=== PATIENT | female | born 1990 | race Caucasian/White ===

== ENCOUNTER 2020-08-22 09:07 | Emergency (ER) | payer MEDICAID, SELFPAY ==
[2020-08-22 09:14] VITALS: BP 120/74; PULSE 85; RESP 16; TEMP 36.2; O2SAT 100; BMI 28.3
--- NOTE | 2020-08-22 10:12 | ED_ITS ---
HPI - General Adult General Chief complaint: General Medical Stated complaint: sore throat,abdominal pain Time Seen by Provider: 08/22/20 10:10 Source: patient Mode of arrival: ambulatory Limitations: no limitations History of Present Illness HPI narrative: 29-year-old female came in today for sore throat, body ache. To symptoms started since yesterday. Patient today feels sore throat, left lower abdominal pain, no nausea, no vomiting. Patient describes the pain as dull aching pain 5/10, pain is constant, localized to the left lower abdominal area, no radiation, no other associated symptoms no vomiting or diarrhea or fever. Pain is not related to food, nothing relieves the pain, patient also declined any urinary dysuria or frequency, no vaginal discharge or bleed. Related Data Allergies Allergy/AdvReac Type Severity Reaction Status Date / Time No Known Allergies Allergy Unverified 03/03/20 16:20 [No Known Allergies*] Review of Systems Review of Systems: All other systems are reviewed and are negative Constitutional: Reports as per HPI and Reports no additional constitutional complaints Eyes: Reports as per HPI and Reports no additional eye complaints Reports system reviewed and no additional complaints, except as documented Cardiovascular: Reports as per HPI and Reports no additional cardiovascular complaints Respiratory: Reports as per HPI and Reports no additional respiratory complaints Gastrointestinal: Reports as per HPI and Reports no additional gastrointestinal complaints Genitourinary: Reports no additional female genitourinary complaints Musculoskeletal: Reports no additional musculoskeletal complaints Skin/Breast: Reports system reviewed and no additional complaints, except as docu Psychiatric: Reports no additional psychiatric complaints Endocrine: Reports no additional endocrine complaints Hematologic/Lymphatic: Reports no additional hematologic/lymphatic complaints Allergic/Immunologic: Reports no additional allergic/immunologic complaints Reports system reviewed and no additional complaints, except as documented and Reports Abnormal speech present [facility] Past Medical History Medical History No known health problems Social History Social History Advance Directives: No Advance Directives Information Provided: No Physical Exam Vital Signs: Vital Signs: Last Vital Signs Temp 97.2 F 08/22/20 09:14 Pulse 85 08/22/20 09:14 Resp 16 08/22/20 09:14 BP 120/74 08/22/20 09:14 Pulse Ox 100 08/22/20 09:14 Body Mass Index 28.3 Vital signs have been reviewed as appeared to be correct. Blood pressure normal. Heart rate normal. Respiration rate normal. Temperature normal. Oxygen saturation normal. Appearance: Alert. Oriented X3. No acute distress. Head: Normal external exam. Normocephalic. Atraumatic. No Morales signs noted. No raccoon eyes noted Eyes: PERRLA. EOMI. Conjunctiva and sclera normal. Eyelids normal. ENT: TM's Normal. Pharynx normal. Uvula midline. Moist mucous membranes. No trismus noted. No drooling noted. No muffled voice noted. Neck: Normal inspection. Neck supple. FROM. No adenopathy. Thyroid Normal. No meningeal signs. No neck mass noted. CVS: Normal heart rate and rhythm. Heart sound normal. No murmurs noted. Pulses normal throughout. Respiratory: No respiratory distress. Painless inspiration. Breath sounds normal. No wheezes/rales/rhonchi noted. Chest nontender. No accessory muscle usage noted or decreased air movement noted. Abdomen: Soft, mild left lower quadrant tenderness, no rebound tenderness, no guarding. Bowel sounds normal in all 4 quadrants. No distention noted. No organomegaly noted. No visible injury noted. Back: No CVA tenderness. Full range of motion noted. Skin: Skin warm and dry. Normal skin color. Normal skin turgor. No rashes/lesions/lacerations noted. Extremities: No lower extremity edema. Extremities exhibit normal range of motion. Extremities nontender. Neuro: Oriented X 3. No motor deficit. No sensory deficit. Reflexes normal. Course Course Course Narrative: [age] year female came in with generalized body ache and left lower abdominal pain. Patient has unremarkable labs, patient still have very mild left lower abdominal pain. No leukocytosis. Patient was reassured, start with clear diet advanced slowly as tolerated, patient was instructed to return to the emergency department if symptoms are worsening. Medical Decision Making Lab Data Lab results reviewed: Yes I reviewed the patient's lab results. Result diagrams: 08/22/20 12:11 08/22/20 12:11 Labs: Lab Results 08/22/20 08/22/20 08/22/20 Range/Units 10:01 12:02 12:02 WBC (4.8-10.8) X10*3/uL RBC (4.20-5.50) X10*6/uL Hgb (12.0-16.0) g/dl Hct (37-47) % MCV (80-98) fL MCH (27.0-33.0) pg MCHC (31.0-35.0) g/dl RDW (11.0-16.0) % Plt Count (160-400) X10*3/uL MPV (9.4-12.3) fL Immature Gran % (Auto) (0.0-0.4) % Neut % (Auto) (45-73) % Lymph % (Auto) (20-40) % [place] % (Auto) (2-11) % Eos % (Auto) (0-4) % Baso % (Auto) (0-2) % Lymph # (Auto) (1.2-4.9) X10*3/uL [place] # (Auto) (0.1-1.2) X10*3/uL Eos # (Auto) (0.0-0.4) X10*3/uL Baso # (Auto) (0.0-0.2) X10*3/uL Abs Immat Gran (auto) (0.00-0.03) X10*3/uL Absolute Neuts (auto) (2.0-8.3) X10*3/uL Absolute Nucleated RBC (0.0-0.012) X10*3/uL Nucleated RBC % (auto) (0.0-0.2) /100WBC Sodium (135-145) mmol/L Potassium (3.3-5.1) mmol/L Chloride (96-108) mmol/L Carbon Dioxide (22-29) mmol/L Anion Gap (12-20) BUN (9-16) mg/dL Creatinine (0.5-1.4) mg/dL Estim Creat Clear Calc Estimated GFR Random Glucose (60-115) mg/dL Calcium (8.4-10.2) mg/dL Total Bilirubin (0.0-1.0) mg/dL Direct Bilirubin (0.0-0.5) mg/dL AST (5-31) U/L ALT (0-31) U/L Alkaline Phosphatase (39-117) U/L Total Protein (6.5-8.0) g/dL Albumin (3.5-5.0) g/dL Lipase (8-78) U/L Urine Color YELLOW Urine Appearance HAZY Urine pH 5.5 (5.0-8.0) Ur Specific [place] >= 1.030 H (1.005-1.025) Urine Protein NEG (NEG-TRACE) MG/DL Urine Glucose (UA) NEG (NEG) MG/DL Urine Ketones NEG (NEG) MG/DL Urine Blood 1+ H (NEG) Urine Nitrite NEG (NEG) Ur Leukocyte Esterase NEG (NEG) Urine RBC 1-4 (0) /HPF Urine WBC 0 (0-4) /HPF Ur Squamous Epith Cells 1+ /LPF Urine Bacteria NONE /LPF Urine Mucus 3+ /LPF Urine Test NEGATIVE (NEGATIVE) Coronavirus (PCR) NEGATIVE (Negative) Influenza Type A (PCR) NEGATIVE (Negative) Influenza Type B (PCR) NEGATIVE (Negative) RSV RNA Qual (PCR) NEGATIVE (Negative) 08/22/20 08/22/20 Range/Units 12:11 12:11 WBC 6.5 (4.8-10.8) X10*3/uL RBC 5.28 (4.20-5.50) X10*6/uL Hgb 13.2 (12.0-16.0) g/dl Hct 41.3 (37-47) % MCV 78.2 L (80-98) fL MCH 25.0 L (27.0-33.0) pg MCHC 32.0 (31.0-35.0) g/dl RDW 14.3 (11.0-16.0) % Plt Count 279 (160-400) X10*3/uL MPV 9.9 (9.4-12.3) fL Immature Gran % (Auto) 0.3 (0.0-0.4) % Neut % (Auto) 63.9 (45-73) % Lymph % (Auto) 29.1 (20-40) % [place] % (Auto) 5.9 (2-11) % Eos % (Auto) 0.6 (0-4) % Baso % (Auto) 0.2 (0-2) % Lymph # (Auto) 1.9 (1.2-4.9) X10*3/uL [place] # (Auto) 0.4 (0.1-1.2) X10*3/uL Eos # (Auto) 0.0 (0.0-0.4) X10*3/uL Baso # (Auto) 0.0 (0.0-0.2) X10*3/uL Abs Immat Gran (auto) 0.02 (0.00-0.03) X10*3/uL Absolute Neuts (auto) 4.1 (2.0-8.3) X10*3/uL Absolute Nucleated RBC 0.000 (0.0-0.012) X10*3/uL Nucleated RBC % (auto) 0.0 (0.0-0.2) /100WBC Sodium 140 (135-145) mmol/L Potassium 4.4 (3.3-5.1) mmol/L Chloride 108 (96-108) mmol/L Carbon Dioxide 23 (22-29) mmol/L Anion Gap 13 (12-20) BUN 10 (9-16) mg/dL Creatinine 0.63 (0.5-1.4) mg/dL Estim Creat Clear Calc 128.0 Estimated GFR > 60 Random Glucose 85 (60-115) mg/dL Calcium 9.4 (8.4-10.2) mg/dL Total Bilirubin 0.9 (0.0-1.0) mg/dL Direct Bilirubin 0.4 (0.0-0.5) mg/dL AST 14 (5-31) U/L ALT 12 (0-31) U/L Alkaline Phosphatase 54 (39-117) U/L Total Protein 7.8 (6.5-8.0) g/dL Albumin 4.3 (3.5-5.0) g/dL Lipase 30 (8-78) U/L Urine Color Urine Appearance Urine pH (5.0-8.0) Ur Specific [place] (1.005-1.025) Urine Protein (NEG-TRACE) MG/DL Urine Glucose (UA) (NEG) MG/DL Urine Ketones (NEG) MG/DL Urine Blood (NEG) Urine Nitrite (NEG) Ur Leukocyte Esterase (NEG) Urine RBC (0) /HPF Urine WBC (0-4) /HPF Ur Squamous Epith Cells /LPF Urine Bacteria /LPF Urine Mucus /LPF Urine Test (NEGATIVE) Coronavirus (PCR) (Negative) Influenza Type A (PCR) (Negative) Influenza Type B (PCR) (Negative) RSV RNA Qual (PCR) (Negative) Discharge Plan Discharge Clinical Impression: Abdominal pain Qualifiers: Abdominal location: left lower quadrant Qualified Code(s): R10.32 - Left lower quadrant pain Patient Disposition: Home, Self-Care Instructions: Abdominal Pain (ED) Referrals: Heraclio Rocha MD [Primary Care Provider] - 2 days
[2020-08-22 10:56] LABS: Influenza A PCR NEGATIVE (Negative); Influenza B PCR NEGATIVE (Negative); Resp Syncy Virus RNA Qual PCR NEGATIVE (Negative); SARS COV2 PCR INHOUSE NEGATIVE (Negative)
[2020-08-22 12:25] LABS: MANUAL DIFF FLAG NO
[2020-08-22 12:30] LABS: Glucose Urine UA NEG (NEG); Leukocyte Esterase Urine NEG (NEG); Nitrite Urine NEG (NEG); PH 5.5 (5.0-8.0); Specific Gravity - Urine >= 1.030 (1.005-1.025); Urine Blood 1+ (NEG); Urine Ketones NEG (NEG); Urine Protein NEG (NEG-TRACE)
[2020-08-22 12:34] LABS: UPreg QC Valid YES; Urine Pregnancy NEGATIVE (NEGATIVE)
[2020-08-22 12:34] LABS: Basophils Percent Auto 0.2 % (0-2); Eosinophils Percent Auto 0.6 % (0-4); Hematocrit 41.3 % (37-47); Hemoglobin 13.2 g/dl (12.0-16.0); Imm Gran Abs Auto 0.02 X10*3/uL (0.00-0.03); Imm Gran Pct Auto 0.3 % (0.0-0.4); Lymphocytes Absolute Auto 1.9 X10*3/uL (1.2-4.9); Lymphocytes Percent Auto 29.1 % (20-40); Mean Corpuscular Volume 78.2 fL (80-98); Mean Platelet Volume 9.9 fL (9.4-12.3); Monocytes Absolute Auto 0.4 X10*3/uL (0.1-1.2); Monocytes Percent Auto 5.9 % (2-11); Neutrophils Absolute Auto 4.1 X10*3/uL (2.0-8.3); Neutrophils Percent Auto 63.9 % (45-73); Platelet Count 279 X10*3/uL (160-400); Red Blood Count 5.28 X10*6/uL (4.20-5.50); Red Cell Distribution Width 14.3 % (11.0-16.0); White Blood Count 6.5 X10*3/uL (4.8-10.8)
[2020-08-22 12:35] LABS: Appearance Urine HAZY; Color Urine YELLOW
[2020-08-22 12:40] LABS: Mucus Urine 3+ /LPF; Squamous Epithelial Cell Urine 1+ /LPF; WBC Urine 0 /HPF (0-4)
[2020-08-22 13:00] LABS: Alanine Aminotransferase 12 U/L (0-31); Albumin Level 4.3 g/dL (3.5-5.0); Alkaline Phosphatase 54 U/L (39-117); Aspartate Amino Transferase 14 U/L (5-31); Bilirubin Direct 0.4 mg/dL (0.0-0.5); Bilirubin Total 0.9 mg/dL (0.0-1.0); Blood Urea Nitrogen 10 mg/dL (9-16); Calcium 9.4 mg/dL (8.4-10.2); Estimated Glomerular Filt Rate > 60; Glucose Random 85 mg/dL (60-115); Lipase 30 U/L (8-78); Total Protein 7.8 g/dL (6.5-8.0)
[2020-08-22 13:11] LABS: Anion Gap 13 (12-20); Carbon Dioxide 23 mmol/L (22-29); Chloride 108 mmol/L (96-108); Potassium 4.4 mmol/L (3.3-5.1); Sodium 140 mmol/L (135-145)
== END 2020-08-22 13:20 | disposition home or self-care (01) ==
PROVIDERS: Emergency Provider Emergency Medicine; PCP Internal Medicine
DX: J02.0 Streptococcal pharyngitis (principal); R10.32 Left lower quadrant pain; Z20.822 Contact with and (suspected) exposure to COVID-19
CPT/HCPCS: 0241U; 36415; 80048; 80076; 81001; 81025; 83690; 85025; 87071; 87147; 87880; 99283

== ENCOUNTER 2021-01-05 14:27 | Emergency (ER) | payer MEDICAID, SELFPAY ==
[2021-01-05 15:00] VITALS: BP 113/64; PULSE 93; RESP 18; TEMP 36.7; O2SAT 100; BMI 31.3
[2021-01-05 16:40] LABS: Glucose Urine UA NEG (NEG); Leukocyte Esterase Urine NEG (NEG); Nitrite Urine NEG (NEG); Specific Gravity - Urine >= 1.030 (1.005-1.025); Urine Blood NEG (NEG); Urine Ketones NEG (NEG); Urine Protein TRACE MG/DL (NEG-TRACE)
[2021-01-05 16:41] LABS: Appearance Urine CLEAR; Color Urine YELLOW
[2021-01-05 17:04] LABS: Anion Gap 11 (12-20); Blood Urea Nitrogen 6 mg/dL (9-16); Calcium 8.9 mg/dL (8.4-10.2); Carbon Dioxide 24 mmol/L (22-29); Chloride 105 mmol/L (96-108); Creatinine Clr Calc Pharmacy 149.9; Estimated Glomerular Filt Rate > 60; Glucose Random 69 mg/dL (60-115); Potassium 4.1 mmol/L (3.3-5.1); Sodium 136 mmol/L (135-145)
== END 2021-01-05 21:07 | disposition left against medical advice (07) ==
PROVIDERS: Emergency Provider Emergency Medicine; PCP Internal Medicine
DX: O26.892 Other specified pregnancy related conditions, second trimester (principal); R10.9 Unspecified abdominal pain; Z3A.19 19 weeks gestation of pregnancy
CPT/HCPCS: 36415; 80048; 81003; 99283

== ENCOUNTER 2021-02-01 13:38 | Outpatient (REF) | payer MEDICAID, SELFPAY | END 2021-02-01 13:39 | disposition home or self-care (01) | LOC: HO.LAB 13:38 | PROVIDERS: PCP Internal Medicine; Visit Provider Internal Medicine | DX: Z20.822 Contact with and (suspected) exposure to COVID-19 (principal) | CPT/HCPCS: C9803; U0003; U0005 ==

== ENCOUNTER 2021-03-18 14:09 | Emergency (ER) | payer MEDICAID, SELFPAY ==
[2021-03-18 14:30] VITALS: BP 127/68; PULSE 106; RESP 16; TEMP 37; O2SAT 97; BMI 32.8
[2021-03-18 14:52] LABS: COVID-19 Test Negative (Negative)
== END 2021-03-18 17:41 | disposition left against medical advice (07) ==
PROVIDERS: Emergency Provider Emergency Medicine; PCP Internal Medicine
DX: J02.9 Acute pharyngitis, unspecified (principal); R51.9 Headache, unspecified; R42 Dizziness and giddiness; M79.10 Myalgia, unspecified site; Z20.822 Contact with and (suspected) exposure to COVID-19
CPT/HCPCS: 36415; 87635; 99282; 99283

== ENCOUNTER 2021-03-20 13:58 | Outpatient (REF) | payer MEDICAID, SELFPAY | END 2021-03-20 13:59 | disposition home or self-care (01) | LOC: HO.LAB 13:58 | PROVIDERS: PCP Internal Medicine; Visit Provider Internal Medicine | DX: Z20.822 Contact with and (suspected) exposure to COVID-19 (principal) | CPT/HCPCS: U0003; U0005 ==

== ENCOUNTER 2021-06-10 05:22 | Emergency (ER) | payer MEDICAID, SELFPAY ==
[2021-06-10 06:03] VITALS: BP 136/85; PULSE 85; RESP 16; TEMP 37.2; O2SAT 97; BMI 29.2
--- NOTE | 2021-06-10 06:32 | ED.URI ---
HPI - URI/Sore Throat General Chief Complaint: Upper Respiratory Symptoms Stated Complaint: sore throat, headache, fever ; COVID+ ?? Time Seen by Provider: 06/10/21 06:17 Source: patient Mode of arrival: ambulatory Limitations: no limitations History of Present Illness HPI Narrative: 30-year-old female who presents emergency department for evaluation upper respiratory infection type symptoms. The patient states that she has been sick since (3 days). The patient states that she has had fever, chills, sore throat, headache and nonproductive cough. She denied chest pain, shortness of breath or dyspnea on exertion. She states she is feeling fatigued and is having body aches. The patient is not vaccinated for COVID-19. The patient is approximately 3 weeks . She states that she had no difficulties during her or during her delivery. She currently is living at home with her 3-week-old , a 6-year-old and her . The patient was not vaccinated for COVID-19. The patient used a home COVID-19 test when her initial symptoms started 3 days prior and it was negative. Her home COVID-19 test today was positive. Related Data Previous Rx's Medication Instructions Recorded penicillin V potassium 500 mg 500 mg PO Q12H 10 Days #20 tab 08/26/20 tablet Allergies Allergy/AdvReac Type Severity Reaction Status Date / Time No Known Allergies Allergy Verified 01/05/21 15:00 [No Known Allergies*] Review of Systems Review of Systems: Yes all other systems are reviewed and are negative Neurologic: Reports Abnormal speech present [facility] Past Medical History [facility] Narrative: Past medical history: None. Past surgical history: None. Social history: She denies tobacco use. She denies alcohol use. She denies drug use. Medical History No known health problems Social History Social History Advance Directives: No Advance Directives Information Provided: Yes Physical Exam Vital Signs: Vital Signs: Last Vital Signs Temp 98.9 F 06/10/21 06:03 Pulse 85 06/10/21 06:03 Resp 16 06/10/21 06:03 BP 136/85 06/10/21 06:03 Pulse Ox 97 06/10/21 06:03 BMI result Body Mass Index 29.2 Const: General: cooperative, no acute distress, well developed, alert and awake Orientation/consciousness: oriented to person HENMT: Head: Yes normal to inspection, Yes normocephalic and Yes atraumatic Ears: hearing grossly normal bilaterally General nose exam: Normal external nose present Face and sinus: Yes normal facial exam Mouth: Normal oral and palatal mucosa present, lip normal, tongue normal, oropharynx normal and moist mucous membranes Throat: Yes posterior oropharynx normal, Yes tonsils normal and Yes uvula midline Eyes: General: appearance normal, both eyes and all related structures Eyelids: Yes eyelids normal Conjunctivae: conjunctivae normal Sclerae: sclerae normal Corneas: corneas normal Pupils: Equal, round and reactive pupils present Neck: Neck: Yes normal visual inspection, Yes no lymphadenopathy, Yes trachea midline and Yes supple Thyroid: Thyroid normal Lymphatic: no lymphadenopathy noted Chest: Chest palpation & inspection: normal inspection of the chest and normal palpation of entire chest wall Resp: Effort & Inspection: normal respiratory effort and able to speak in complete sentences Auscultation: clear to auscultation bilaterally Cardio: Rate: regular rate Rhythm: regular rhythm Heart sounds: S1 normal heart sound present, S2 normal heart sound present and no murmurs GI: Inspection: Yes normal to inspection Palpation (GI): Soft to palpation, nontender and No hepatosplenomegaly present Auscultation: normal bowel sounds : General: Yes no CVA tenderness Back/Spine/Pelvis: Back: no CVA tenderness Thoracic/Lumbar Spine: thoracic and lumbar spine normal to inspection Skin: General skin exam: no rashes or lesions noted, no erythema and no jaundice Lesions: no lesions Rashes: no rashes Trauma: no lacerations or abrasions Wounds: no wounds Neuro: General: oriented to person, moves all extremities and no focal motor deficits Cranial nerves: Yes Equal, round and reactive pupils present Cognition (Neuro): normal cognition Speech: Abnormal speech present Motor exam (neuro): Motor abnormalities not present Extrem: General: Yes normal to inspection, Yes no pedal edema and Yes no calf tenderness Right upper extremity: normal to inspection Left upper extremity: normal to inspection Right lower extremity: normal to inspection Left lower extremity: normal to inspection Psych: Appearance: grossly normal Mental Status: mental status grossly normal Speech and movement: Normal speech and movement present Affect: normal affect Attitude: cooperative Thought process: Normal thought process present Insight: Good insight present (Psych) Course Course Course Narrative: 30-year-old female who presents emergency department for evaluation URI like symptoms x3 days. The patient is x3 weeks. The symptoms include headache, sore throat, fever, cough, myalgias and fatigue. She had a positive home COVID-19 test today. She is complaining of a headache. She is not complaining of abdominal pain but given her other symptoms and her positive COVID-19 test at home, I believe that her symptoms are most likely due to a viral infection and not related to preeclampsia. Patient's blood pressure was normal at 136/85 . The rest of her vital signs were normal with an O2 saturation of 97% on room air. The patient was tested for COVID-19, influenza and RSV. The patient will be sent home and I will call her with this result. The patient was given printed and verbal instructions on COVID, isolation and quarantine instructions for her family as well. Discharge Plan Discharge Clinical Impression: Upper respiratory infection Patient Disposition: Home, Self-Care Instructions: COVID-19 (Coronavirus Disease 2019) (ED) Additional Instructions: Your symptoms are consistent with a viral upper respiratory infection, given your positive home COVID-19 test, you most likely have a COVID-19 infection. Your tested today for COVID-19, influenza and RSV virus. I will call you today with this result. Given your positive home COVID-19 test you need to isolate for 14 days. You, your and her 6-year-old child should wear masks at home to reduce the chance of your and 6-year-old child becoming positive for COVID-19. At this time your vital signs were normal and your O2 saturation (oxygen level was 97%). We usually do not hospitalized people with COVID-19 if you developed pneumonia and your oxygen level drops below 88%. Take ibuprofen 200 mg pills, 3 pills every 6 hours as needed for pain or fever Take Tylenol (acetaminophen) 500 mg pills, 2 pills every 4 to 6 hours as needed for pain or fever Please return to emergency department if you develops signs of pneumonia which would include shortness of breath with walking around, moderate to severe shortness of breath at rest, chest pain which is worse with breathing, or if you develops any new symptoms that are concerning to you. Your family needs to stay in isolation for 14 days as well. You can go to the CDC website for more information on isolation and quarantine and people that her COVID positive. If your 3-week-old baby gets sick then you should bring your baby to the Pediatric Emergency Department at [facility] where they have specialized care to take care of the baby this young. Prescriptions: No Action penicillin V potassium 500 mg tablet 500 mg PO Q12H 10 Days Qty: 20 RF: 0
[2021-06-10 06:47] LABS: Influenza A PCR NEGATIVE (Negative); Influenza B PCR NEGATIVE (Negative); Resp Syncy Virus RNA Qual PCR NEGATIVE (Negative)
[2021-06-10 06:50] LABS: SARS COV2 PCR INHOUSE POSITIVE (Negative)
== END 2021-06-10 07:05 | disposition home or self-care (01) ==
PROVIDERS: Emergency Provider Emergency Medicine Emergency Medical Services
DX: O99.53 Diseases of the respiratory system complicating the puerperium (principal); J06.9 Acute upper respiratory infection, unspecified; Z20.822 Contact with and (suspected) exposure to COVID-19
CPT/HCPCS: 0241U; 99283

== ENCOUNTER 2021-06-28 14:42 | Outpatient (REF) | payer MEDICAID, SELFPAY ==
[2021-06-28 15:52] LABS: COVID-19 Test Negative (Negative)
== END 2021-06-28 14:43 | disposition home or self-care (01) ==
LOC: HO.LAB 14:42
PROVIDERS: Visit Provider Internal Medicine
DX: Z20.822 Contact with and (suspected) exposure to COVID-19 (principal)
CPT/HCPCS: 87635; C9803

== ENCOUNTER 2021-11-30 08:41 | Emergency (ER) | payer OTHER, SELFPAY ==
[2021-11-30 08:43] VITALS: BP 128/85; PULSE 78; RESP 14; TEMP 36.5; O2SAT 99; BMI 29.2
--- NOTE | 2021-11-30 09:02 | ED_ITS ---
HPI - General Adult General Chief complaint: General Medical Stated complaint: r foot and r hand pain Time Seen by Provider: 11/30/21 09:02 Source: patient Mode of arrival: ambulatory Limitations: no limitations History of Present Illness HPI narrative: 31 y/o female presenting with right foot pain and right hand pain, acute on chronic after starting a new job this week. She is standing and using her hands for 8 hours a day. She has a bunion on her right foot that has bothered her for years but worse now that she is on her feet all the time. No trauma or injury. She does not wear bunion supports or wide shoes. Her right hand pain is also acute on chronic and flares up when she uses her hands a lot. She denies any weakness, numbness or tingling in the hand. She states the pain is worse when she puts pressure on it or pushes hard on the hand bones. No injury. complaint: right foot and right hand pain Onset (ago): month(s) Location: right, upper extremity and lower extremity Radiation: non-radiation Severity: moderate Severity scale (1-10): 5 Quality: aching Pain Consistency: intermittent Relieving factors: rest Exacerbating factors: movement Associated symptoms: denies other symptoms Treatments prior to arrival: none Related Data Previous Rx's Medication Instructions Recorded penicillin V potassium 500 mg 500 mg PO Q12H Pharyngitis 10 days 08/26/20 tablet #20 tabs ibuprofen 600 mg tablet 600 mg PO Q8H PRN pain #20 tabs 11/30/21 Allergies Allergy/AdvReac Type Severity Reaction Status Date / Time No Known Allergies Allergy Verified 01/05/21 15:00 [No Known Allergies*] Review of Systems Review of Systems: Constitutional: No Fever, No Chills ENT/Mouth: No sore throat, No Rhinorrhea Cardiovascular: No Chest Pain, No SOB Gastrointestinal: No Nausea, No Vomiting Musculoskeletal: + joint pain, No Myalgias Skin: No Skin Lesions, No rash Neuro: No Weakness, No Numbness Psych: No Anxiety/Panic, No Depression Heme/Lymph: No Bruising, No Lymphadenopathy PMFSH Past Medical History Medical History No known health problems Social History Social History Advance Directives: No Advance Directives Information Provided: No Physical Exam ED Vital Signs: Vital Signs - 24 hr 11/30/21 08:43 Temperature 97.7 F Pulse Rate 78 Respiratory Rate 14 Blood Pressure 128/85 Pulse Oximetry 99 Oxygen Delivery Method Room Air BMI result Body Mass Index 29.2 Appearance: Alert. Oriented X3. No acute distress. HEENT: normal inspection CVS: Normal heart rate and rhythm. Pulses normal. Respiratory: No respiratory distress. Skin: Skin warm and dry. Normal skin color. Normal skin turgor. No rashes. Extremities: right foot with a small bunion at the 1st MTP, mildly tender, not red or warm. no sensory deficit. right hand with normal inspection, mild tenderness of the metacarpals 3-5. 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 NV intact. normal adduction and abduction of all digits. no erythema or warmth. Neuro: Oriented X 3. No motor deficit. No sensory deficit. Course Course Course Narrative: 31 y/o female presenting with acute on chronic right foot and right hand pain. Exam is consistent with a small bunion on the right foot. Patient counseled on appropriate footwear and bunion corrector splint. Her hand pain is nontraumatic and due to overuse. Will place in velcro splint for support, prescribe NSAID and have her follow up with Podiatry and Hand. Stable for d/c home. Work note provided per request. Discharge Plan Discharge Clinical Impression: Bunion of right foot, Arthralgia of hand, right Patient Disposition: Home, Self-Care Instructions: Bunion (ED) Additional Instructions: Recommend getting a wide shoe for better fit, so your bunion is not compressed. Wear the provided velcro splint as needed for support of your hand. Take the prescribed anti-inflammatory pain medication as needed for pain. Recommend following up with your doctor, as well as a Farm Planner and our Hand Specialist for further evaluation. If you develop new or worsening symptoms call 911 or come back to the ER for further evaluation. Prescriptions: New ibuprofen 600 mg tablet 600 mg PO Q8H PRN (Reason: pain) Qty: 20 0RF No Action penicillin V potassium 500 mg tablet 500 mg PO Q12H 10 Days Qty: 20 0RF Referrals: Salomón Cummings MD [Primary Care Provider] - Shara Sherman MD [Physician] - (nontraumatic right metacarpal pain, overuse) Ezra Cabrera MD [Physician] - (painful bunion right foot) Stand Alone Forms: Work/School Release
--- NOTE | 2021-11-30 09:17 | PC.NURSE ---
steady gait, moving all extremities, no obvious deformity, nad.
== END 2021-11-30 09:23 | disposition home or self-care (01) ==
PROVIDERS: Emergency Provider Student in an Organized Health Care Education/Training Program; PCP Internal Medicine
DX: M21.611 Bunion of right foot (principal); M79.671 Pain in right foot; M25.541 Pain in joints of right hand
CPT/HCPCS: 99283

== ENCOUNTER 2022-01-17 07:48 | Outpatient (REF) | payer OTHER, SELFPAY | END 2022-01-17 07:49 | disposition home or self-care (01) | LOC: HO.HOSX 07:48 | PROVIDERS: Visit Provider Physician Assistant | DX: Z13.89 Encounter for screening for other disorder (principal) ==

== ENCOUNTER 2023-02-05 17:44 | Emergency (ER) | payer OTHER, SELFPAY ==
--- NOTE | ~2023-02-05 | XR_ITS ---
EXAMINATION: XR FOOT, LEFT CLINICAL INFORMATION: Pain. COMPARISON: None available. TECHNIQUE: AP, lateral, and oblique views of the left foot. FINDINGS: The bone mineralization is normal. No fracture. Alignment is anatomic. Joint spaces are maintained. There is focal soft tissue swelling along the dorsum of the midfoot. XR/XR foot LT min 3V IMPRESSION: No acute osseous abnormality. Soft tissue swelling along the dorsum of the midfoot.
[2023-02-05 18:30] VITALS: BP 128/80; PULSE 71; RESP 18; TEMP 36.6; O2SAT 100; BMI 28.7
--- NOTE | 2023-02-05 18:30 | ED.LOWEXIN ---
HPI - Extremity Injury (Lower) General Chief Complaint: Extremity Injury, Lower Stated Complaint: ? cyst on L foot Time Seen by Provider: 02/05/23 18:56 Source: patient Mode of arrival: ambulatory Limitations: no limitations History of Present Illness HPI Narrative: 32 old female presents to ED for swelling on top of left foot. Patient states lump on top of left foot that is for a week without any trauma. patient states at times can be painful. Patient denies any redness of area, open wounds, leg swelling, calf pain, red streaks, fever, chills, calf pain, chest pain, shortness of breath, bluish black discoloration, or numbness/ tingling. Related Data Previous Rx's Medication Instructions Recorded amitriptyline 10 mg tablet 10 mg PO BEDTIME 30 days #30 tabs 04/16/22 cephalexin 500 mg capsule 500 mg PO TID #30 caps 07/11/22 meloxicam 15 mg tablet 15 mg PO DAILY #14 tabs 07/11/22 Allergies Allergy/AdvReac Type Severity Reaction Status Date / Time No Known Allergies Allergy Verified 02/05/23 18:30 [No Known Allergies*] Review of Systems Review of Systems: foot lump Yes all other systems are reviewed and are negative PMFSH Past Medical History Medical History No known health problems Social History Social History Housing: Apartment Patient Tobacco Use Status: Never used Tobacco e-Cigarette/Vaping Use: Never Used Advance Directives: No Advance Directives Information Provided: No Current occupational status: employed Cognitive needs: No Hearing needs: No Vision needs: Yes Physical Exam Vital Signs: Vital Signs: Last Vital Signs Temp 99.2 F 02/05/23 20:07 Pulse 80 02/05/23 20:07 Resp 20 02/05/23 20:07 BP 120/82 02/05/23 20:07 Pulse Ox 100 02/05/23 20:07 O2 Del Method Room Air 02/05/23 20:07 BMI result Body Mass Index 28.7 Const: General: cooperative, healthy appearing, comfortable, no acute distress, well developed, alert, awake and Physically active Orientation/consciousness: oriented to person, oriented to place, oriented to time and patient oriented x3 HEENT: Head: Yes normal to inspection, Yes No palpable skull fracture present, Yes normocephalic, Yes atraumatic and No abrasion Eyes: General: appearance normal, both eyes and all related structures Neck: Neck: Yes normal visual inspection, Yes full ROM, Yes no lymphadenopathy, Yes no meningeal signs, Yes trachea midline, Yes supple, No anterior neck swelling and No tender Chest: Chest palpation & inspection: normal inspection of the chest and normal palpation of entire chest wall Resp: Effort & Inspection: normal respiratory effort and able to speak in complete sentences Auscultation: clear to auscultation bilaterally Cardio: Jugular venous distension: no JVD Heart sounds: S1 normal heart sound present and S2 normal heart sound present GI: Inspection: Yes normal to inspection Palpation (GI): Soft to palpation, not firm, nontender, no guarding and not rigid : General: No CVA tenderness and Yes no CVA tenderness Back/Spine/Pelvis: Back: no CVA tenderness, No CVA tenderness and No back tenderness Skin: General skin exam: no rashes or lesions noted and elasticity normal Neuro: General: oriented to person, oriented to place, oriented to time, patient oriented x3, gait normal, tone normal, moves all extremities, Normal light touch and pain sensation, no meningeal signs, no focal motor deficits, CN's II-XI intact bilaterally and normal sensation to monofilament Extrem: General: Yes normal to inspection and Yes full ROM Ankle/foot/toe images: 1. Positive for tender swollen area without any redness/fluctuance/pus discharge/foul odor. Rest of extremity normal. Motor/ neuro/vascular exam intact. Psych: Appearance: grossly normal, well kempt and not disheveled Course Course Course Narrative: RME: 32-year-old female with no significant past medical history presenting to the ED complaining of painful growing lump to top of left foot x months. Reports increasing pain over the past few days. Denies injury/trauma or fall + 2 x 2 cm hard cyst/lump to dorsal aspect of left foot. Mildly tender. Any intact. No erythema/warmth or fluctuance. No drainage X-rays ordered Full HPI, ROS and PE to be performed by primary ED provider. Medical Decision Making Medical Decision Making MDM Narrative: 32-year-old female with lump on dorsum of left foot that is painful without any redness, recent trauma, open wounds, pulse discharge, foul odor, fever, or chills. Patient states no trouble walking. Patient states no other masslike lesion on the bursal body. Patient denies any calf pain, fever, chills, chest pain or shortness. Differential Diagnosis Differential Diagnoses: The differential diagnosis associated with the presentation includes ( abscess, lipoma, cyst, cellulitis, DVT,) Independent Interpretation I performed an independent interpretation of an: Plain X-Ray Radiology Impression Discussion of test interpretation with radiology: I have reviewed the radiologist's reading. External Record Review External record reviewed: Other (Prior ED visit) Discharge Plan Discharge Clinical Impression: Ganglion cyst of left foot, Lipoma Patient Disposition: Home, Self-Care Instructions: Ganglion Cysts (ED), Lipoma (ED), Soft Tissue Mass (ED) Additional Instructions: irasema un seguimiento con martinez proveedor de atenci?n primaria para que lo remita a podolog?a u ortopedia para la evaluaci?n de un posible quiste versus lipoma en martinez pie. Regrese al servicio de urgencias de inmediato por cualquier aumento de la hinchaz?n de las extremidades, enrojecimiento, decoloraci?n ren, dolor en la pantorrilla, vetas castro, fiebre, escalofr?os o cualquier otro s?ntoma preocupante. Prescriptions: No Action amitriptyline 10 mg tablet 10 mg PO BEDTIME 30 Days Qty: 30 0RF cephalexin 500 mg capsule 500 mg PO TID Qty: 30 0RF meloxicam 15 mg tablet 15 mg PO DAILY Qty: 14 0RF Interventions: ED Discharge Assessment Last Done: 02/05/23 21:10 Discharge Date/Time: 02/05/23 21:10 Print Language: [place]
[2023-02-05 20:07] VITALS: BP 120/82; PULSE 80; RESP 20; TEMP 37.3; O2SAT 100
== END 2023-02-05 21:10 | disposition home or self-care (01) ==
PROVIDERS: Emergency Provider Emergency Medicine; PCP Internal Medicine
DX: M67.472 Ganglion, left ankle and foot (principal); D17.39 Benign lipomatous neoplasm of skin and subcutaneous tissue of other sites; Z79.899 Other long term (current) drug therapy
CPT/HCPCS: 73630; 99283

== ENCOUNTER 2023-04-27 11:15 | Emergency (ER) | payer OTHER, SELFPAY ==
--- NOTE | ~2023-04-27 | US_ITS ---
EXAMINATION: US OBSTETRICAL ULTRASOUND CLINICAL INFORMATION: Pain, brown discharge, positive COMPARISON: None available. Real-time imaging by the packaging inspector transabdominal transvaginal. Exam is demonstrating an intrauterine . [place]-rump length is 0.24 cm corresponding to 5 weeks 6 days. heart rate 103 bpm. There is a yolk sac. Adjacent to the sac is a fluid collection measuring 1.6 x 1 x 0.9 cm. Most consistent with a implantation bleed The right ovary is 2.2 x 1.3 x 1.8 cm. Normal-appearing. Left ovary is 2 x 1.6 x 1.8 cm. Cyst associated with the left ovary mildly thick-walled 1.1 cm May well represent corpus luteum. No free fluid. US/US OB pelvic and transvaginal IMPRESSION: Single live intrauterine . 5 weeks 6 days by ultrasound criteria. Implantation bleed is felt to be present 1.6 x 1 x 0.9 cm
[2023-04-27 11:31] VITALS: BP 130/73; PULSE 91; RESP 18; TEMP 36.6; O2SAT 100; BMI 28.7
--- NOTE | 2023-04-27 11:31 | ED.ABDPAIN ---
HPI - Abdominal Pain General Chief Complaint: Abdominal Pain Stated Complaint: stomach pain, pregant Time Seen by Provider: 04/27/23 14:59 Source: patient Mode of arrival: ambulatory Limitations: no limitations History of Present Illness HPI narrative: Patient is a 32 year old assigned female at with a history of migraines presenting to the emergency department today with epigastic pain and brown vaginal discharge. Patient states that she is 5 weeks and has been having some epigastric pain and a small amount of brown discharge since this morning. Patient denies any dizziness, lightheadedness, nausea, vomiting, fever, chills, blurry vision, double vision, loss of vision, chest pain, difficulty breathing, shortness of breath, back pain, night sweats, pain with urination, increased urinary frequency, increased urinary urgency, blood in her urine or stool, syncope or a near syncopal episode, recent trauma or falls, bowel incontinence, bladder incontinence, bowel retention, bladder retention, or any other complaints at this time. Associated symptoms: denies other symptoms Related Data Patient : Yes Previous Rx's Medication Instructions Recorded amitriptyline 10 mg tablet 10 mg PO BEDTIME 30 days #30 tabs 04/16/22 cephalexin 500 mg capsule 500 mg PO TID #30 caps 07/11/22 meloxicam 15 mg tablet 15 mg PO DAILY #14 tabs 07/11/22 Allergies Allergy/AdvReac Type Severity Reaction Status Date / Time No Known Allergies Allergy Verified 02/05/23 18:30 [No Known Allergies*] Review of Systems Constitutional: Reports no additional constitutional complaints, Denies chills, Denies fever(s) and Denies night sweats Eyes: Reports no additional eye complaints, Denies blurry vision, Denies change in vision, Denies diplopia, Denies eye discharge, Denies loss of vision and Denies eye pain Denies dizziness Cardiovascular: Reports no additional cardiovascular complaints, Denies chest pain, Denies lightheadedness, Denies Loss of Consciousness and Denies dyspnea Respiratory: Reports no additional respiratory complaints and Denies dyspnea Gastrointestinal: Reports no additional gastrointestinal complaints, Reports abdominal pain (epigastric pain), Denies melena, Denies hematochezia, Denies change in bowel habits and Denies change in stool character Genitourinary: Denies hematuria, Denies urinary frequency, Denies dysuria, Denies urinary incontinence, Denies urinary hesitancy and Denies urinary urgency Comments: brown vaginal discharge, scant Musculoskeletal: Reports no additional musculoskeletal complaints, Denies numbness and Denies tingling Denies dizziness, Denies loss of vision, Denies numbness and Denies tingling Psychiatric: Reports no additional psychiatric complaints Endocrine: Reports no additional endocrine complaints Hematologic/Lymphatic: Reports no additional hematologic/lymphatic complaints Allergic/Immunologic: Reports no additional allergic/immunologic complaints [facility] Past Medical History Attestation statement: The following information was validated with the patient. Source: old records reviewed and nursing notes reviewed Medical History Knee pain, right Overweight (BMI 25.0-29.9) Encounter for general adult medical examination with abnormal findings Encounter for routine gynecological examination No known health problems Social History Social History Housing: Apartment Patient Tobacco Use Status: Never used Tobacco Smoked in Last 30 Days: No e-Cigarette/Vaping Use: Never Used Use of substances other than those prescribed or required for medical reasons: No Advance Directives: No Advance Directives Information Provided: No Patient : Yes Current occupational status: employed Cognitive needs: No Hearing needs: No Vision needs: Yes Physical Exam ED Vital Signs: Vital Signs - 24 hr 04/27/23 13:56 Pulse Rate 76 Respiratory Rate 16 Blood Pressure 120/73 Pulse Oximetry 100 Oxygen Delivery Method Room Air BMI result Body Mass Index 28.7 Const General: cooperative, no acute distress, alert and awake Nutritional Appearance: well nourished Orientation/consciousness: patient oriented x3 Limitations: no limitations [facility] Head: Yes normal to inspection and Yes atraumatic Ears: hearing grossly normal bilaterally and external ears normal General nose exam: Normal external nose present, no nasal discharge noted and no epistaxis Face and sinus: Yes normal facial exam, No abrasion and No laceration Mouth: Normal oral and palatal mucosa present, no drooling and no muffled voice Eyes General: appearance normal, both eyes and all related structures Periorbital: periorbital findings normal Eyelids: Yes eyelids normal Conjunctivae: conjunctivae normal Pupils: Equal, round and reactive pupils present EOM: EOMs intact bilaterally Neck Neck: Yes normal visual inspection, Yes full ROM and Yes no lymphadenopathy Chest Chest palpation & inspection: normal inspection of the chest Resp Effort & Inspection: normal respiratory effort and able to speak in complete sentences GI Inspection: Yes normal to inspection Palpation (GI): Soft to palpation, not firm, nontender and no guarding Neuro General: patient oriented x3 and moves all extremities Cranial nerves: Yes Equal, round and reactive pupils present Cognition (Neuro): normal cognition Motor exam (neuro): 5/5 motor strength present throughout Sensory Exam: Normal double simultaneous stimulation for sensation Coordination: [id number] test normal Extrem General: Yes normal to inspection, Yes full ROM and Yes capillary refill normal Psych Appearance: grossly normal Mental Status: mental status grossly normal Affect: normal affect Attitude: cooperative Thought process: Normal thought process present Thought content: Normal thought content present Insight: Good insight present (Psych) Course Course Course Narrative: This is a rapid medical exam. Deferred additional HPI, ROS, PE to primary provider. 32 yo female with no known medical history, currently 5 weeks here with 4 days of epigastric pain. No nausea/vomiting/diarrhea/vaginal bleeding. Has not seen OB yet. [place] [facility] [place]. [place] 1 Will obtain labs, UA VSS Medical Decision Making Medical Decision Making MDM Narrative: Patient is a 32 year old assigned female at with a history of migraines presenting to the emergency department today with epigastric pain and scant brown vaginal discharge. Patient's physical exam was unremarkable. Patient's blood work was unremarkable. Patient's urine showed no acute process. Patient's OB transvaginal US showed a single live intrauterine and implantation bleed. I explained my physical exam findings as well as all test results to the patient. I answered all questions asked by the patient. I stressed the importance of the patient taking her medication as prescribed. I stressed the importance of the patient following up with her primary care provider and her OBGYN. Patient states that she has an appointment with her OBGYN on 05/01/2023. I stressed the importance of the patient returning to the emergency department immediately if her symptoms were to worsen or if she were to develop any dizziness, shortness of breath, difficulty breathing, chest pain, blurry vision, loss of vision, nausea, vomiting, abdominal pain, fever, chills, back pain, or any other complaints. Patient verbalized agreement and understanding with this treatment plan and discharge. Differential Diagnosis Differential Diagnoses: The differential diagnosis associated with the presentation includes Subchorionic hemorrhage Vaginal discharge Epigastric pain Admission/Observation Consideration of admission/observation: Escalation of care including admission/observation considered Patient would have been admitted to the hospital had her work up had any findings where hospital admission was appropriate and her clinical presentation warranted hospital admission. Lab Data MDM Lab Attestation statement: I reviewed the patient's lab results. My interpretation of these studies and their corresponding values is that they are grossly normal. 04/27/23 11:51 04/27/23 11:51 Labs: Lab Results 04/27/23 Range/Units 11:51 WBC 7.1 (4.8-10.8) X10*3/uL RBC 5.05 (4.20-5.50) X10*6/uL Hgb 12.4 (12.0-16.0) g/dl Hct 38.5 (37.0-47.0) % MCV 76.2 L (80.0-98.0) fL MCH 24.6 L (27.0-33.0) pg MCHC 32.2 (31.0-35.0) g/dl RDW 15.1 (11.0-16.0) % Plt Count 337 (160-400) X10*3/uL MPV 9.0 L (9.4-12.3) fL Immature Gran % (Auto) 0.3 (0.0-0.4) % Neut % (Auto) 63.8 (45-73) % Lymph % (Auto) 27.7 (20-40) % [place] % (Auto) 6.4 (2-11) % Eos % (Auto) 1.7 (0-4) % Baso % (Auto) 0.1 (0-2) % Lymph # (Auto) 2.0 (1.2-4.9) X10*3/uL [place] # (Auto) 0.5 (0.1-1.2) X10*3/uL Eos # (Auto) 0.1 (0.0-0.4) X10*3/uL Baso # (Auto) 0.0 (0.0-0.2) X10*3/uL Abs Immat Gran (auto) 0.02 (0.00-0.03) X10*3/uL Absolute Neuts (auto) 4.5 (2.0-8.3) x10*3/uL Absolute Nucleated RBC 0.000 (0.0-0.012) X10*3/uL Nucleated RBC % (auto) 0.0 (0.0-0.2) /100WBC Sodium 139 (135-145) mmol/L Potassium 4.1 (3.3-5.1) mmol/L Chloride 105 (96-108) mmol/L Carbon Dioxide 27 (22-29) mmol/L Anion Gap 11 L (12-20) BUN 10 (9-16) mg/dL Creatinine 0.62 (0.5-1.4) mg/dL Estim Creat Clear Calc 127.3 Estimated GFR > 60 Random Glucose 88 (60-115) mg/dL Calcium 9.5 D (8.4-10.2) mg/dL Total Bilirubin 1.0 (0.0-1.0) mg/dL Direct Bilirubin 0.3 (0.0-0.5) mg/dL AST 12 (5-31) U/L ALT 8 (0-31) U/L Alkaline Phosphatase 53 (39-117) U/L Total Protein 7.8 (6.5-8.0) g/dL Albumin 4.1 (3.5-5.0) g/dL Lipase 31 (8-78) U/L Beta HCG, Quant 9551 mIU/mL Urine Color Yellow Urine Appearance Clear Urine pH 8.0 (5.0-9.0) Ur Specific [place] >= 1.030 H (1.005-1.025) Urine Protein Negative (Neg-Trace) mg/dL Urine Glucose (UA) Negative (Negative) mg/dL Urine Ketones Negative (Negative) mg/dL Urine Blood Negative (Negative) Urine Nitrite Negative (Negative) Ur Leukocyte Esterase Trace H (Negative) Urine RBC 3-5 H (0-2) /HPF Urine WBC 0-5 (0-5) /HPF Ur Squamous Epith Cells 6-10 (0-2) /HPF Urine Bacteria None Seen (None Seen) Hyaline Casts 0-2 (0-2) /LPF Urine Test POSITIVE H (NEGATIVE) Independent Interpretation I performed an independent interpretation of an: Ultrasound Interpretation: My interpretation is in agreement with the radiologist's impression of this imaging study. EXAMINATION: US OBSTETRICAL ULTRASOUND CLINICAL INFORMATION: Pain, brown discharge, positive COMPARISON: None available. Real-time imaging by the emergency department manager transabdominal transvaginal. Exam is demonstrating an intrauterine . [place]-rump length is 0.24 cm corresponding to 5 weeks 6 days. heart rate 103 bpm. There is a yolk sac. Adjacent to the sac is a fluid collection measuring 1.6 x 1 x 0.9 cm. Most consistent with a implantation bleed The right ovary is 2.2 x 1.3 x 1.8 cm. Normal-appearing. Left ovary is 2 x 1.6 x 1.8 cm. Cyst associated with the left ovary mildly thick-walled 1.1 cm May well represent corpus luteum. No free fluid. US/US OB pelvic and transvaginal IMPRESSION: Single live intrauterine . 5 weeks 6 days by ultrasound criteria. Implantation bleed is felt to be present 1.6 x 1 x 0.9 cm Dictated By: Jesus Hernandez MD Signed By: Electronically signed by Jesus Hernandez MD 04/27/23 2765 Radiology Impression Discussion of test interpretation with radiology: I have reviewed the radiologist's reading. Discharge Plan Discharge Clinical Impression: Subchorionic hemorrhage Patient Disposition: Home, Self-Care Instructions: Subchorionic Hemorrhage (ED) Additional Instructions: Follow up with your OBGYN as scheduled on 05/01/2023. You are on PELVIC rest. NO sexual intercourse until you see your OBGYN. Follow up with your primary care provider. Return to the emergency department immediately if your symptoms worsen or if you develop any dizziness, shortness of breath, difficulty breathing, chest pain, blurry vision, loss of vision, nausea, vomiting, abdominal pain, fever, chills, back pain, or any other complaints. Prescriptions: No Action amitriptyline 10 mg tablet 10 mg PO BEDTIME 30 Days Qty: 30 0RF cephalexin 500 mg capsule 500 mg PO TID Qty: 30 0RF meloxicam 15 mg tablet 15 mg PO DAILY Qty: 14 0RF Referrals: Heraclio Rocha MD [Primary Care Provider] - Interventions: ED Discharge Assessment Last Done: 04/27/23 15:19 Discharge Date/Time: 04/27/23 15:20 Print Language: Thai
[2023-04-27 11:57] LABS: MANUAL DIFF FLAG NO
[2023-04-27 11:58] LABS: Appearance Urine Clear; Basophils Percent Auto 0.1 % (0-2); Color Urine Yellow; Eosinophils Absolute Auto 0.1 X10*3/uL (0.0-0.4); Eosinophils Percent Auto 1.7 % (0-4); Glucose Urine UA Negative (Negative); Hematocrit 38.5 % (37.0-47.0); Hemoglobin 12.4 g/dl (12.0-16.0); Imm Gran Abs Auto 0.02 X10*3/uL (0.00-0.03); Imm Gran Pct Auto 0.3 % (0.0-0.4); Leukocyte Esterase Urine Trace (Negative); Lymphocytes Percent Auto 27.7 % (20-40); Mean Corpuscular HGB Conc 32.2 g/dl (31.0-35.0); Mean Corpuscular Hemoglobin 24.6 pg (27.0-33.0); Mean Corpuscular Volume 76.2 fL (80.0-98.0); Monocytes Absolute Auto 0.5 X10*3/uL (0.1-1.2); Monocytes Percent Auto 6.4 % (2-11); Neutrophils Absolute Auto 4.5 x10*3/uL (2.0-8.3); Neutrophils Percent Auto 63.8 % (45-73); Nitrite Urine Negative (Negative); Platelet Count 337 X10*3/uL (160-400); Red Blood Count 5.05 X10*6/uL (4.20-5.50); Red Cell Distribution Width 15.1 % (11.0-16.0); Specific Gravity - Urine >= 1.030 (1.005-1.025); UMIC TRIGGER UACC YES; Urine Blood Negative (Negative); Urine Ketones Negative (Negative); Urine Protein Negative (Neg-Trace); White Blood Count 7.1 X10*3/uL (4.8-10.8)
[2023-04-27 12:02] LABS: UPreg QC Valid YES; Urine Pregnancy POSITIVE (NEGATIVE)
[2023-04-27 12:14] LABS: Bacteria Urine None Seen (None Seen); Hyaline Casts Urine 0-2 /LPF (0-2); WBC Urine 0-5 /HPF (0-5)
[2023-04-27 12:18] LABS: Alanine Aminotransferase 8 U/L (0-31); Albumin Level 4.1 g/dL (3.5-5.0); Alkaline Phosphatase 53 U/L (39-117); Anion Gap 11 (12-20); Aspartate Amino Transferase 12 U/L (5-31); Bilirubin Direct 0.3 mg/dL (0.0-0.5); Blood Urea Nitrogen 10 mg/dL (9-16); Calcium 9.5 mg/dL (8.4-10.2); Carbon Dioxide 27 mmol/L (22-29); Chloride 105 mmol/L (96-108); Creatinine Clr Calc Pharmacy 127.3; Estimated Glomerular Filt Rate > 60; Glucose Random 88 mg/dL (60-115); HCG Quantitative 9551 mIU/mL; Lipase 31 U/L (8-78); Potassium 4.1 mmol/L (3.3-5.1); Sodium 139 mmol/L (135-145); Total Protein 7.8 g/dL (6.5-8.0)
[2023-04-27 13:56] VITALS: BP 120/73; PULSE 76; RESP 16; O2SAT 100
== END 2023-04-27 15:20 | disposition home or self-care (01) ==
PROVIDERS: Nurse Practitioner Family; Emergency Provider Emergency Medicine Emergency Medical Services; PCP Internal Medicine
DX: O20.8 Other hemorrhage in early pregnancy (principal); Z3A.01 Less than 8 weeks gestation of pregnancy
CPT/HCPCS: 36415; 76801; 76817; 80048; 80076; 81001; 81003; 81025; 83690; 84702; 85025; 99284

== ENCOUNTER 2023-09-28 14:04 | Emergency (ER) | payer OTHER, SELFPAY ==
--- NOTE | 2023-09-28 15:27 | ED.GENADULT ---
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 She denies history of cold sores. Denies any discharge or drainage. Denies fevers. Denies any known injury to the area. She is not on any ACEIs. MD complaint: lip swelling Onset (ago): day(s) Location: mouth Quality: aching Pain Consistency: constant Associated symptoms: denies other symptoms Treatments prior to arrival: none Related Data Previous Rx's ?Medication ?Instructions ?Recorded amitriptyline 10 mg tablet 10 mg PO BEDTIME 30 days #30 tabs 04/16/22 cephalexin 500 mg capsule 500 mg PO TID #30 caps 07/11/22 meloxicam 15 mg tablet 15 mg PO DAILY #14 tabs 07/11/22 cephalexin 500 mg tablet 500 mg PO QID #20 tabs 09/28/23 valacyclovir 1 gram tablet 1,000 mg PO BID #14 tabs 09/28/23 Allergies Allergy/AdvReac Type Severity Reaction Status Date / Time No Known Allergies Allergy Verified 09/28/23 16:03 [No Known Allergies*] Review of Systems Review of Systems: As per HPI. Yes all other systems are reviewed and are negative Constitutional: Constitutional: Reports as per HPI [facility] Past Medical History Medical History Knee pain, right Overweight (BMI 25.0-29.9) Encounter for general adult medical examination with abnormal findings Encounter for routine gynecological examination No known health problems Social History Social History Housing: Apartment Patient Tobacco Use Status: Never used Tobacco e-Cigarette/Vaping Use: Never Used Advance Directives: No Advance Directives Information Provided: No Current occupational status: employed Cognitive needs: No Hearing needs: No Vision needs: Yes Physical Exam ED Vital Signs: Vital Signs - 24 hr 09/28/23 16:02 Temperature 97.9 F Pulse Rate 89 Respiratory Rate 18 Blood Pressure 129/82 Pulse Oximetry 100 Oxygen Delivery Method Room Air BMI result Body Mass Index 28.3 Vital signs have been reviewed and appear to be correct. Blood pressure normal. Heart rate normal. Respiratory rate normal. Temperature normal. Oxygen saturation normal. Const General: cooperative, healthy appearing and no acute distress Orientation/consciousness: oriented to person, oriented to place, oriented to time and patient oriented x3 Limitations: no limitations HENMT Head: Yes normocephalic and Yes atraumatic Ears: external ears normal General nose exam: Normal external nose present Face and sinus: Yes face symmetric Mouth: oropharynx normal, moist mucous membranes and lip abnormal right lower swelling and other (erythema with central white area) Throat: Yes uvula midline Eyes Pupils: Equal, round and reactive pupils present Neck Neck: Yes normal visual inspection and Yes supple Resp Effort & Inspection: normal respiratory effort and able to speak in complete sentences Auscultation: clear to auscultation bilaterally Cardio Rate: regular rate Rhythm: regular rhythm Heart sounds: S1 normal heart sound present and S2 normal heart sound present GI Palpation (GI): Soft to palpation and nontender Auscultation: normoactive bowel sounds General: Yes no CVA tenderness Back/Spine/Pelvis Back: no CVA tenderness Skin General skin exam: elasticity normal and turgor normal Neuro General: oriented to person, oriented to place, oriented to time, patient oriented x3, moves all extremities, no focal motor deficits and CN's II-XI intact bilaterally Cranial nerves: Yes Equal, round and reactive pupils present Cognition (Neuro): normal cognition Extrem General: Yes full ROM, Yes no pedal edema and Yes no calf tenderness Psych Mental Status: mental status grossly normal Affect: normal affect Thought process: Normal thought process present Medical Decision Making Medical Decision Making MDM Narrative: Patient is a 33-year-old Malagasy-speaking female with history of gingivitis and migraines presenting to the emergency department with pain and swelling to right lower lip since yesterday. On exam patient is awake, A+Ox3, VS WNL, afebrile, normal neurological exam without focal deficits, physical exam findings as above. Given reported symptoms and physical exam findings, initial differential includes HSV versus cellulitis. Discussed plan with patient via catering manager and she is agreeable to treatment with both cephalexin and valacyclovir. Return precautions discussed at bedside. Patient verbalized understanding of and agreement with plan. Differential Diagnosis Differential Diagnoses: The differential diagnosis associated with the presentation includes As per [facility] External Record Review External record reviewed: Inpatient record, Office record and Outpatient record Prescription Management I considered prescription management with: Antiviral and Antibiotic Discharge Plan Discharge Clinical Impression: Lip swelling Patient Disposition: Home, Self-Care Additional Instructions: You were evaluated in the emergency department today for swelling and pain to your lower lip. You are being treated with both an antibiotic to cover a bacterial infection and an antiviral medication to treat viral infection. Please take these medications as prescribed. Return to the emergency department if you develop increasing swelling, thick yellow drainage, fevers, difficulty breathing or any other concerning symptoms. Prescriptions: New cephalexin 500 mg tablet 500 mg PO QID Qty: 20 0RF valacyclovir 1 gram tablet 1,000 mg PO BID Qty: 14 0RF No Action amitriptyline 10 mg tablet 10 mg PO BEDTIME 30 Days Qty: 30 0RF cephalexin 500 mg capsule 500 mg PO TID Qty: 30 0RF meloxicam 15 mg tablet 15 mg PO DAILY Qty: 14 0RF Print Language: Malagasy
[2023-09-28 16:02] VITALS: BP 129/82; PULSE 89; RESP 18; TEMP 36.6; O2SAT 100; BMI 28.3
[2023-09-28 16:34] VITALS: BP 122/80; PULSE 88; RESP 18; TEMP 36.4; O2SAT 100
== END 2023-09-28 16:35 | disposition home or self-care (01) ==
PROVIDERS: Emergency Provider Emergency Medicine Emergency Medical Services; PCP Internal Medicine
DX: K13.0 Diseases of lips (principal)
CPT/HCPCS: 99282; 99283

== ENCOUNTER 2024-01-31 07:40 | Emergency (ER) | payer OTHER, SELFPAY ==
--- NOTE | ~2024-01-31 | US_ITS ---
EXAMINATION: US ABDOMEN LIMITED CLINICAL INFORMATION: Right upper quadrant pain. COMPARISON: CT abdomen/pelvis 02/23/2018 TECHNIQUE: Real-time imaging of the right upper quadrant abdominal viscera. FINDINGS: PANCREAS: Tail obscured. LIVER: The liver is normal in size. The liver contour is normal. Parenchymal echogenicity is normal. No focal hepatic lesion. There is no intrahepatic biliary duct dilatation seen. GALLBLADDER: 0.7 x 0.6 x 0.7 cm calculus impacted in the gallbladder neck. The gallbladder is physiologically distended without evidence of wall thickening or pericholecystic fluid. Negative sonographic Carver's sign. COMMON BILE DUCT: Normal in caliber measuring 0.2 cm in diameter. RIGHT KIDNEY: No hydronephrosis. No renal calculi or focal parenchymal lesions. The kidney measures 10.2 cm in maximum dimension. FREE FLUID: None. US/US abdomen limited IMPRESSION: Cholelithiasis without sonographic evidence of acute cholecystitis.
[2024-01-31 07:44] VITALS: BP 122/79; PULSE 94; RESP 16; TEMP 36.6; O2SAT 100; BMI 29.6
[2024-01-31 08:00] VITALS: BP 129/82; PULSE 92; RESP 16; TEMP 36.9; O2SAT 100
--- NOTE | 2024-01-31 08:06 | ED.ABDPAIN ---
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 No fevers, no urinary symptoms, no discharge, vaginal bleeding or lower abdominal pain. She denies eating food to trigger this or sick contacts. She has not taken any medications for it. No issues this . MD elicited complaint: abdominal pain Pertinent past history: none Onset (ago): day(s) (last night) Pain Consistency: constant Location: epigastric and RUQ Severity: moderate Quality: aching Radiation: none Migration to: no migration Exacerbating factors: eating Relieving factors: nothing Associated symptoms: nausea and vomiting Related Data Previous Rx's ?Medication ?Instructions ?Recorded amitriptyline 10 mg tablet 10 mg PO BEDTIME 30 days #30 tabs 04/16/22 cephalexin 500 mg capsule 500 mg PO TID #30 caps 07/11/22 meloxicam 15 mg tablet 15 mg PO DAILY #14 tabs 07/11/22 cephalexin 500 mg tablet 500 mg PO QID #20 tabs 09/28/23 valacyclovir 1 gram tablet 1,000 mg PO BID #14 tabs 09/28/23 ferrous sulfate 325 mg (65 mg 325 mg PO DAILY #30 tabs 01/31/24 iron) tablet vitamin #56-iron 35 mg 1 cap PO DAILY #30 caps 01/31/24 and 5 mg-folic acid 1 mg-dha capsule Allergies Allergy/AdvReac Type Severity Reaction Status Date / Time No Known Allergies Allergy Verified 01/31/24 07:51 [No Known Allergies*] Review of Systems Review of Systems Constitutional : No Weight loss, No Fever, No Chills ENT/Mouth : No sore throat, No Rhinorrhea Eyes: No Swelling, No Redness Cardiovascular : No Chest Pain, No SOB, No edema Respiratory : No Cough, No Sputum, No Wheezing Gastrointestinal : Positive Nausea, Positive Vomiting, no Diarrhea, positive abdominal Pain, No Hematochezia, No Melena Genitourinary : No Dysuria, No Urinary Frequency, No Hematuria, No Urgency Musculoskeletal : No joint pain, No Myalgias, No Joint Swelling Skin : No Skin Lesions, No rash Neuro : No Weakness, No Numbness, No Dizziness, No Headache All other systems reviewed and are negative. [facility] Past Medical History Attestation statement: The following information was validated with the patient. Source: old records reviewed Medical History Knee pain, right Overweight (BMI 25.0-29.9) Encounter for general adult medical examination with abnormal findings Encounter for routine gynecological examination No known health problems Social History Social History Housing: Apartment Patient Tobacco Use Status: Never used Tobacco Smoked in Last 30 Days: No e-Cigarette/Vaping Use: Never Used Use of substances other than those prescribed or required for medical reasons: No Advance Directives: No Advance Directives Information Provided: No Do you have a plan to hurt others: No Plan Patient : Yes Current occupational status: employed Cognitive needs: No Hearing needs: No Vision needs: Yes Physical Exam ED Vital Signs: Vital Signs - 24 hr 01/31/24 07:44 01/31/24 08:00 01/31/24 10:40 Temperature 97.8 F 98.5 F 98.1 F Pulse Rate 94 92 78 Respiratory Rate 16 16 14 Blood Pressure 122/79 129/82 110/63 Pulse Oximetry 100 100 99 Oxygen Delivery Method Room Air Room Air Room Air 01/31/24 12:00 Temperature 98.5 F Pulse Rate 79 Respiratory Rate 14 Blood Pressure 117/69 Pulse Oximetry 100 Oxygen Delivery Method Room Air BMI result Body Mass Index 29.6 Appearance: Alert. Oriented X3. No acute distress. Eyes: Pupils equal, round and reactive to light. ENT: Pharynx normal. Neck: Normal inspection. Neck supple. CVS: Normal heart rate and rhythm. Pulses normal. Respiratory: No respiratory distress. Breath sounds normal. Abdomen: Soft and mild epigastric ttp no rebound and neg rosen's sign Skin: Skin warm and dry. Normal skin color. Extremities: No lower extremity edema. Neuro: Oriented X 3. No motor deficit. No sensory deficit. Course Course Course Narrative: LDH and bili normal doubt hemolytic anemia Medical Decision Making Medical Decision Making MDM Narrative: 33 yo female with PMH of migraines who is 13 weeks presents with upper abdominal pain and nausea one loose stool this AM - no sick contacts, no fevers, no issues such as lower abdominal pain, cramping, vaginal bleeding. At this time IVF, US to evaluate gallbladder ordered, PO tylenol Differential Diagnosis Differential Diagnoses: The differential diagnosis associated with the presentation includes viral syndrome, gastritis, biliary colic Admission/Observation Consideration of admission/observation: Escalation of care including admission/observation considered feels better, tolerating PO no signs of infection not taking Fe from states it was not covered by [facility] [address] Lab Data [facility] Lab Attestation statement: I reviewed the patient's lab results. 01/31/24 09:26 01/31/24 08:54 Labs: Lab Results 01/31/24 01/31/24 01/31/24 Range/Units 08:54 09:01 09:26 WBC 10.6 (4.8-10.8) X10*3/uL RBC 3.52 L D (4.20-5.50) X10*6/uL Hgb 8.9 L D (12.0-16.0) g/dl Hct 27.9 L D (37.0-47.0) % MCV 79.3 L (80.0-98.0) fL MCH 25.3 L (27.0-33.0) pg MCHC 31.9 (31.0-35.0) g/dl RDW 18.1 H (11.0-16.0) % Plt Count 187 D (160-400) X10*3/uL MPV 10.1 (9.4-12.3) fL Immature Gran % (Auto) Cancelled Neut % (Auto) Cancelled Lymph % (Auto) Cancelled [place] % (Auto) Cancelled Eos % (Auto) Cancelled Baso % (Auto) Cancelled Lymph # (Auto) Cancelled [place] # (Auto) Cancelled Eos # (Auto) Cancelled Baso # (Auto) Cancelled Abs Immat Gran (auto) Cancelled Absolute Neuts (auto) Cancelled Absolute Nucleated RBC 0.000 (0.0-0.012) X10*3/uL Nucleated RBC % (auto) 0.0 (0.0-0.2) /100WBC Neutrophils % (Manual) 87 H (45-73) % Band Neutrophils % 3 (3-5) % Lymphocytes % (Manual) 8 L (20-40) % Monocytes % (Manual) 1 L (2-11) % Basophils % (Manual) 1 (0-2) % Abs Neuts (Manual) 9.5 H (2.0-8.3) X10*3/uL Lymphocytes # (Manual) 0.8 L (1.2-4.9) X10*3/uL Monocytes # (Manual) 0.1 (0.1-1.2) X10*3/uL Basophils # (Manual) 0.1 (0.0-0.2) X10*3/uL Toxic Vacuolation PRESENT Platelet Estimate NORMAL (NORMAL) Plt Morphology Comment NORM RBC Morphology NOTED Polychromasia 1+ (0-2) /OIF Hypochromasia 1+ (5-14) /OIF Microcytosis 1+ (5-14) /OIF [place] Cells 2+ (3-5) /OIF Acanthocytes (Spur) 1+ (0-2) /OIF Sodium 136 (135-145) mmol/L Potassium 4.1 (3.3-5.1) mmol/L Chloride 106 (96-108) mmol/L Carbon Dioxide 23 (22-29) mmol/L Anion Gap 11 L (12-20) BUN 6 L (9-16) mg/dL Creatinine 0.59 (0.5-1.4) mg/dL Estim Creat Clear Calc 134.6 Estimated GFR > 60 Random Glucose 103 (60-115) mg/dL Haptoglobin Cancelled Calcium 9.1 (8.4-10.2) mg/dL Magnesium 1.7 (1.6-2.6) mg/dL Total Bilirubin 0.5 (0.0-1.0) mg/dL Direct Bilirubin 0.1 (0.0-0.5) mg/dL AST 13 (5-31) U/L ALT 12 (0-31) U/L Alkaline Phosphatase 53 (39-117) U/L Lactate Dehydrogenase 160 (122-220) U/L Total Protein 7.1 (6.5-8.0) g/dL Albumin 3.4 L (3.5-5.0) g/dL Lipase 21 (8-78) U/L Urine Color Yellow Urine Appearance Clear Urine pH 6.5 (5.0-9.0) Ur Specific [place] 1.025 (1.005-1.025) Urine Protein Trace (Neg-Trace) mg/dL Urine Glucose (UA) Negative (Negative) mg/dL Urine Ketones Trace (Negative) mg/dL Urine Blood Negative (Negative) Urine Nitrite Negative (Negative) Ur Leukocyte Esterase Trace H (Negative) Urine RBC 0-2 (0-2) /HPF Urine WBC 0-5 (0-5) /HPF Ur Squamous Epith Cells 3-5 (0-2) /HPF Urine Bacteria None Seen (None Seen) Hyaline Casts 0-2 (0-2) /LPF Independent Interpretation I performed an independent interpretation of an: Ultrasound (biliary colic) Radiology Impression Discussion of test interpretation with radiology: I have reviewed the radiologist's reading. External Record Review External record reviewed: Inpatient record Prescription Management I considered prescription management with: Other Medications Administered Discontinued Medications Generic Name Dose Route Start Last Admin Trade Name Freq PRN Reason Stop Dose Admin Acetaminophen 650 mg 01/31/24 07:53 01/31/24 09:04 Acetaminophen 325 Mg Tablet PO 01/31/24 07:54 650 mg ONCE ONE Administration Calcium Carbonate 750 mg 01/31/24 11:17 01/31/24 11:28 Calcium Carbonate 750 Mg Tab.Chew PO 01/31/24 11:18 750 mg ONCE ONE Administration Sodium Chloride 1,000 mls @ 999 mls/hr 01/31/24 07:53 01/31/24 11:28 Ns IV 01/31/24 08:53 Infused .Q1H1M ONE Infusion Oxycodone HCl 5 mg 01/31/24 11:17 01/31/24 11:27 Oxycodone Hcl Immed Release 5 Mg Tablet PO 01/31/24 11:18 5 mg ONCE ONE Administration Discharge Plan Discharge Clinical Impression: Biliary colic, Chronic anemia Patient Disposition: Home, Self-Care Instructions: Biliary Colic (ED), Low Fat Diet (ED), Anemia (ED) Additional Instructions: low fat diet tell your OBGYN about gallstones recheck hemoglobin next week with your OBGN it was 8.9 today return for fevers, vomiting, worsening pain or any other concerns. Prescriptions: New ferrous sulfate 325 mg (65 mg iron) tablet 325 mg PO DAILY Qty: 30 0RF PNV #[id number] acid-dha 35 mg iron-5 mg iron-1 mg capsule 1 cap PO DAILY Qty: 30 3RF No Action cephalexin 500 mg tablet 500 mg PO QID Qty: 20 0RF valacyclovir 1 gram tablet 1,000 mg PO BID Qty: 14 0RF amitriptyline 10 mg tablet 10 mg PO BEDTIME 30 Days Qty: 30 0RF cephalexin 500 mg capsule 500 mg PO TID Qty: 30 0RF meloxicam 15 mg tablet 15 mg PO DAILY Qty: 14 0RF Print Language: Malay
[2024-01-31] MEDS: 0.9 % Sodium Chloride 1,000 ML 999 ML IV (09:01)
[2024-01-31] MEDS: Acetaminophen 325 MG TABLET 650 MG PO (09:04)
[2024-01-31 09:12] LABS: Appearance Urine Clear; Color Urine Yellow; Glucose Urine UA Negative (Negative); Leukocyte Esterase Urine Trace (Negative); Nitrite Urine Negative (Negative); PH 6.5 (5.0-9.0); Specific Gravity - Urine 1.025 (1.005-1.025); UMIC TRIGGER UACC YES; Urine Blood Negative (Negative); Urine Ketones Trace mg/dL (Negative); Urine Protein Trace mg/dL (Neg-Trace)
[2024-01-31 09:23] LABS: Bacteria Urine None Seen (None Seen); Hyaline Casts Urine 0-2 /LPF (0-2); RBC Urine 0-2 /HPF (0-2); WBC Urine 0-5 /HPF (0-5)
[2024-01-31 09:31] LABS: Alanine Aminotransferase 12 U/L (0-31); Albumin Level 3.4 g/dL (3.5-5.0); Alkaline Phosphatase 53 U/L (39-117); Anion Gap 11 (12-20); Aspartate Amino Transferase 13 U/L (5-31); Bilirubin Direct 0.1 mg/dL (0.0-0.5); Bilirubin Total 0.5 mg/dL (0.0-1.0); Blood Urea Nitrogen 6 mg/dL (9-16); Calcium 9.1 mg/dL (8.4-10.2); Carbon Dioxide 23 mmol/L (22-29); Chloride 106 mmol/L (96-108); Creatinine Clr Calc Pharmacy 134.6; Estimated Glomerular Filt Rate > 60; Glucose Random 103 mg/dL (60-115); Lipase 21 U/L (8-78); Magnesium 1.7 mg/dL (1.6-2.6); Potassium 4.1 mmol/L (3.3-5.1); Sodium 136 mmol/L (135-145); Total Protein 7.1 g/dL (6.5-8.0)
[2024-01-31 09:36] LABS: Hematocrit 27.9 % (37.0-47.0); Hemoglobin 8.9 g/dl (12.0-16.0); Mean Corpuscular HGB Conc 31.9 g/dl (31.0-35.0); Mean Corpuscular Hemoglobin 25.3 pg (27.0-33.0); Mean Corpuscular Volume 79.3 fL (80.0-98.0); Mean Platelet Volume 10.1 fL (9.4-12.3); Platelet Count 187 X10*3/uL (160-400); Red Blood Count 3.52 X10*6/uL (4.20-5.50); Red Cell Distribution Width 18.1 % (11.0-16.0); White Blood Count 10.6 X10*3/uL (4.8-10.8)
[2024-01-31 10:07] LABS: Band Neutrophils Percent 3 % (3-5); Basophils Abs Manual 0.1 X10*3/uL (0.0-0.2); Basophils Percent Manual 1 % (0-2); Lymphocytes Absolute Manual 0.8 X10*3/uL (1.2-4.9); Lymphocytes Percent Manual 8 % (20-40); Monocytes Absolute Manual 0.1 X10*3/uL (0.1-1.2); Monocytes Percent Manual 1 % (2-11); Neutrophils Absolute Manual 9.5 X10*3/uL (2.0-8.3); Neutrophils Percent Manual 87 % (45-73)
[2024-01-31 10:09] LABS: Acanthocytes 1+ (0-2) /OIF; Burr Cells 2+ (3-5) /OIF; Hypochromasia 1+ (5-14) /OIF; Microcytosis 1+ (5-14) /OIF; Platelet Estimate NORMAL (NORMAL); Polychromasia 1+ (0-2) /OIF; RBC Morphology NOTED; Toxic Vacuolation PRESENT
[2024-01-31 10:10] LABS: Platelet Morphology Comment NORM
[2024-01-31 10:40] VITALS: BP 110/63; PULSE 78; RESP 14; TEMP 36.7; O2SAT 99
[2024-01-31] MEDS: oxyCODONE HCl Immed Release 5 MG TABLET PO (11:27)
[2024-01-31] MEDS: Calcium Carbonate 750 MG TAB.CHEW PO (11:28)
--- NOTE | 2024-01-31 11:31 | MHC.EDTECH ---
This tech ambulated pt to the bathroom, call doran within reach.
[2024-01-31 12:00] VITALS: BP 117/69; PULSE 79; RESP 14; TEMP 36.9; O2SAT 100
[2024-01-31 12:17] LABS: Lactate Dehydrogenase 160 U/L (122-220)
[2024-01-31 12:33] VITALS: BP 117/69; PULSE 79; RESP 14; TEMP 36.9; O2SAT 100
== END 2024-01-31 12:37 | disposition home or self-care (01) ==
PROVIDERS: Emergency Provider Emergency Medicine; PCP Internal Medicine
DX: O99.611 Diseases of the digestive system complicating pregnancy, first trimester (principal); K80.20 Calculus of gallbladder without cholecystitis without obstruction; O99.011 Anemia complicating pregnancy, first trimester; Z3A.01 Less than 8 weeks gestation of pregnancy
CPT/HCPCS: 36415; 76705; 80048; 80076; 81001; 83615; 83690; 83735; 85007; 85025; 85027; 96360; 96361; 99285

== ENCOUNTER 2025-04-05 09:37 | Emergency (ER) | payer OTHER, SELFPAY ==
--- NOTE | 2025-04-05 09:39 | ECG_ITS ---
Test Reason : CP Blood Pressure : */* mmHG Vent. Rate : 83 BPM Atrial Rate : 83 BPM P-R Int : 166 ms QRS Dur : 90 ms QT Int : 366 ms P-R-T Axes : 32 31 16 degrees QTcB Int : 430 ms Normal sinus rhythm Normal ECG No previous ECGs available Referred By: Generic ED Physician Electronically Signed By: KAITLIN DENSON MD
[2025-04-05 09:55] VITALS: BP 130/84; PULSE 81; RESP 16; TEMP 37; O2SAT 99; BMI 29.3
--- NOTE | 2025-04-05 10:00 | ED_ITS ---
HPI - General Adult General Chief complaint: Abdominal Pain Stated complaint: SOB, CP. Diff swallowing Time Seen by Provider: 04/05/25 10:07 Source: patient and old records reviewed Mode of arrival: ambulatory Limitations: no limitations History of Present Illness ED Provider: MELANIA MENDEZ narrative: 34 yo female with PMH of gallstones, migraines, here with c/o increased acid, diff swallowing, heartburn. She has had testing done at [facility] but notes she had a swallow study showing hiatal hernia. She states she takes an antacid every day but doesn't know what the name or dose is. She states she has green stool and some black to it. She notes her thyroid also has nodules and is waiting for her biopsy results. She denies fevers. She denies sick contacts, no travel, no OCP use. Swallow study - normal oral and pharyngeal phase, esophagus normal in appearance, no GERD noted, no gastric outlet obstruction, only abnormality is small type 1 hiatal hernia MD complaint: heartburn Onset (ago): month(s) (1) Radiation: non-radiation Severity: moderate Quality: burning Pain Consistency: intermittent Relieving factors: none Exacerbating factors: eating Associated symptoms: shortness of breath Treatments prior to arrival: none Related Data Previous Rx's ?Medication ?Instructions ?Recorded amitriptyline 10 mg tablet 10 mg PO BEDTIME 30 days #3 0 tabs 04/16/22 cephalexin 500 mg capsule 500 mg PO TID #30 caps 07/11 meloxicam 15 mg tablet 15 mg PO DAILY #14 tabs 06/18 11/06 cephalexin 500 mg tablet 500 mg PO QID #20 tabs 09/27 valacyclovir 1 gram tablet 1,000 mg PO BID #14 tabs ferrous sulfate 325 mg (65 mg 325 mg PO DAILY #30 tabs 01/31/24 iron) tablet vitamin no.56-iron 35 mg 1 cap PO DAILY #30 c aps 01/31/24 and 5 mg-folic acid 1 mg-dha capsule sucralfate 100 mg/mL oral 10 ml PO BID 7 days #140 mL 04/05/25 suspension (Carafate) Allergies Allergy/AdvReac Type Severity Reaction Status Date / Time No Known Allergies (No Known Allergy Verified 04/05/25 09:58 Allergies*) Review of Systems 2 Review of Systems: Constitutional : No Weight loss, No Fever, No Chills ENT/Mouth : pos sore throat, No Rhinorrhea Eyes: No Swelling, No Redness Cardiovascular : pos Chest Pain, pos SOB, No Edema Respiratory : No Cough, No Sputum, No Wheezing Gastrointestinal :no Nausea, no Vomiting, no Diarrhea, no abdominal Pain, No Hematochezia, No Melena Genitourinary : No Dysuria, No Urinary Frequency, No Hematuria, No Urgency Musculoskeletal : No joint pain, No Myalgias, No Joint Swelling Skin : No Skin Lesions, No rash Neuro : No Weakness, No Numbness, No Dizziness, No Headache All other systems reviewed and are negative. [facility] Past Medical History Attestation statement: The following information was validated with the patient. Source: old records reviewed Medical History Knee pain, right Overweight (BMI 25.0-29.9) Encounter for general adult medical examination with abnormal findings Encounter for routine gynecological examination No known health problems Social History Social History Housing: Apartment Patient Tobacco Use Status: Never used Tobacco Smoked in Last 30 Days: No e-Cigarette/Vaping Use: Never Used Use of substances other than those prescribed or required for medical reasons: No Advance Directives: No Advance Directives Information Provided: No Patient : No Current occupational status: employed Cognitive needs: No Hearing needs: No Vision needs: Yes Physical Exam ED Vital Signs: Vital Signs - 24 hr 04/05/25 09:55 04/05/25 10:31 Temperature 98.6 F 98.3 F Pulse Rate 81 88 Respiratory Rate 16 20 Blood Pressure 130/84 138/82 Pulse Oximetry 99 98 Oxygen Delivery Method Room Air Room Air BMI result Body Mass Index 29.3 Appearance: Alert. Oriented X3. No acute distress. Eyes: Pupils equal, round and reactive to light. ENT: Pharynx normal. Mild bilateral tonsilar swelling, mild erythema no exudates Neck: Normal inspection. Neck supple. mild thyroid enlargement but normal voice, no stridor CVS: Normal heart rate and rhythm. Pulses normal. Respiratory: No respiratory distress. Breath sounds normal. Abdomen: Soft and nontender. Skin: Skin warm and dry. Normal skin color. Normal skin turgor. Extremities: No lower extremity edema. No calf ttp Neuro: Oriented X 3. No motor deficit. No sensory deficit. CN2-12 intact Course Course Course Narrative: RME, this is a rapid medical exam performed by Cesar Mallory please refer to primary provider for complete H&P- 34-year-old female presents for evaluation of upper abdominal pain potentially worse after eating. She reports that she had a recent barium swallow and was told that she has some type of hernia. She has no follow up. She complains of heartburn with the associated shortness of breath. Plan for basic labs, EKG was performed on arrival, but I have a low suspicion for cardiac disease Medications Administered Discontinued Medications Generic Name Dose Route Start Last Admin Trade Name Freq PRN Reason Stop Dose Admin Al Hydroxide/Mg Hydroxide 15 ml 04/05/25 10:32 04/05/25 11:12 Magnesium Hydrox/Alum Hydrox 30 Ml Oral.Susp PO 04/05/25 10:33 15 ml ONCE ONE Administration Lidocaine HCl 15 ml 04/05/25 10:32 04/05/25 11:12 Lidocaine Hcl Viscous 2 % 15 Ml Solution MUCOUS MEM 04/05/25 10:33 15 ml ONCE ONE Administration Sucralfate 1 gm 04/05/25 10:32 04/05/25 11:12 Sucralfate Oral Suspension 1 Gm/10 Ml Oral.Susp PO 04/05/25 10:33 1 gm ONCE ONE Administration Medical Decision Making Medical Decision Making [facility] Narrative: 34 yo female with PMH of gallstones, migraines, here with c/o heartburn, diff swallowing and breathing she declines rectal exam for her green black stools, she will get labs, CXR, neck xray and start on carafate and GI cocktail. She has no abdominal pain to suggest biliary colic/pancreatitis. Differential Diagnosis Differential Diagnoses: The differential diagnosis associated with the presentation includes gastritis, GERD, esophagitis, no pain to suggest biliary colic,pancreatitis she is PERC negative has no ACS risk factors Admission/Observation Consideration of admission/observation: Escalation of care including admission/observation considered feels better, work up reassuring will dc to PCP and on carafate Lab Data [facility] Lab Attestation statement: I reviewed the patient's lab results. 04/05/25 10:12 04/05/25 10:12 Labs: Lab Results 04/05/25 04/05/25 Range/Units 10:12 11:43 WBC 6.0 (4.8-10.8) X10*3/uL RBC 5.21 D (4.20-5.50) X10*6/uL Hgb 11.9 L D (12.0-16.0) g/dl Hct 37.8 D (37.0-47.0) % MCV 72.6 L (80.0-98.0) fL MCH 22.8 L (27.0-33.0) pg MCHC 31.5 (31.0-35.0) g/dl RDW 15.8 (11.0-16.0) % Plt Count 357 D (160-400) X10*3/uL MPV 9.2 L (9.4-12.3) fL Immature Gran % (Auto) 0.2 (0.0-0.4) % Neut % (Auto) 58.7 (45-73) % Lymph % (Auto) 31.7 (20-40) % [place] % (Auto) 6.0 (2-11) % Eos % (Auto) 3.2 (0-4) % Baso % (Auto) 0.2 (0-2) % Lymph # (Auto) 1.9 (1.2-4.9) X10*3/uL [place] # (Auto) 0.4 (0.1-1.2) X10*3/uL Eos # (Auto) 0.2 (0.0-0.4) X10*3/uL Baso # (Auto) 0.0 (0.0-0.2) X10*3/uL Abs Immat Gran (auto) 0.01 (0.00-0.03) X10*3/uL Absolute Neuts (auto) 3.5 (2.0-8.3) x10*3/uL Absolute Nucleated RBC 0.000 (0.0-0.012) X10*3/uL Nucleated RBC % (auto) 0.0 (0.0-0.2) /100WBC Sodium 139 (135-145) mmol/L Potassium 4.2 (3.3-5.1) mmol/L Chloride 107 (96-108) mmol/L Carbon Dioxide 25 (22-29) mmol/L Anion Gap 11 L (12-20) BUN 8 L (9-16) mg/dL Creatinine 0.56 (0.5-1.4) mg/dL Estim Creat Clear Calc 145.3 Estimated GFR > 60 Random Glucose 99 (60-115) mg/dL Calcium 9.0 (8.4-10.2) mg/dL Total Bilirubin 0.6 (0.0-1.0) mg/dL Direct Bilirubin 0.1 (0.0-0.5) mg/dL AST 17 (5-31) U/L ALT 24 (0-31) U/L Alkaline Phosphatase 68 (39-117) U/L Troponin I High Sens < 2.7 (<3.5-17.0) ng/L Total Protein 7.3 (6.5-8.0) g/dL Albumin 4.1 (3.5-5.0) g/dL Lipase 29 (8-78) U/L TSH 0.64 (0.32-4.0) uIU/mL Beta HCG, Quant < 2 mIU/mL S. pyogenes GrpA ELOISA Negative (Negative) Independent Interpretation I performed an independent interpretation of an: EKG Interpretation: Rate: 83 Rhythm: NSR Effie: normal Normal P waves. Normal DYAN. Normal QRS complex. ST T wave : no STEPHEN, inverted t waves V1, V2 and III qTC: 430 prior studies: no acute ischemia The study has been interpreted contemporaneously by me. . External Record Review External record reviewed: Outpatient record and Prior outpatient radiology Prescription Management I considered prescription management with: Other Discharge Plan Discharge Clinical Impression: Atypical chest pain, GERD with esophagitis Patient Disposition: Home, Self-Care Instructions: Chest Pain (ED), GERD (Gastroesophageal Reflux Disease) (ED) Additional Instructions: labs reassuring strep negative EKG reassuring you had a normal swallow study other than small hiatal hernia please follow up with your doctor and ask for a GI doctor referral continue to take your medications with the new med for your esophagus return for any worsening symptoms or concerns. Prescriptions: New sucralfate [Carafate] 100 mg/mL suspension 10 ml PO BID 7 Days Qty: 140 0RF No Action ferrous sulfate 325 mg (65 mg iron) tablet 325 mg PO DAILY Qty: 30 0RF PNV [id number] acid-dha 35 mg iron-5 mg iron-1 mg capsule 1 cap PO DAILY Qty: 30 3RF cephalexin 500 mg tablet 500 mg PO QID Qty: 20 0RF valacyclovir 1 gram tablet 1,000 mg PO BID Qty: 14 0RF amitriptyline 10 mg tablet 10 mg PO BEDTIME 30 Days Qty: 30 0RF cephalexin 500 mg capsule 500 mg PO TID Qty: 30 0RF meloxicam 15 mg tablet 15 mg PO DAILY Qty: 14 0RF Print Language: [place]
[2025-04-05 10:17] LABS: MANUAL DIFF FLAG NO
[2025-04-05 10:18] LABS: Hematocrit 37.8 % (37.0-47.0); Hemoglobin 11.9 g/dl (12.0-16.0); Imm Gran Abs Auto 0.01 X10*3/uL (0.00-0.03); Imm Gran Pct Auto 0.2 % (0.0-0.4); Lymphocytes Absolute Auto 1.9 X10*3/uL (1.2-4.9); Mean Corpuscular HGB Conc 31.5 g/dl (31.0-35.0); Mean Corpuscular Hemoglobin 22.8 pg (27.0-33.0); Mean Corpuscular Volume 72.6 fL (80.0-98.0); NRBC Abs Auto 0.000 X10*3/uL (0.0-0.012); NRBC Pct Auto 0.0 /100WBC (0.0-0.2); Platelet Count 357 X10*3/uL (160-400); Red Blood Count 5.21 X10*6/uL (4.20-5.50); White Blood Count 6.0 X10*3/uL (4.8-10.8)
[2025-04-05 10:31] VITALS: BP 138/82; PULSE 88; RESP 20; TEMP 36.8; O2SAT 98
[2025-04-05 10:48] LABS: Troponin-I High Sensitivity < 2.7 ng/L (<3.5-17.0)
[2025-04-05 10:49] LABS: Alanine Aminotransferase 24 U/L (0-31); Albumin Level 4.1 g/dL (3.5-5.0); Alkaline Phosphatase 68 U/L (39-117); Anion Gap 11 (12-20); Aspartate Amino Transferase 17 U/L (5-31); Blood Urea Nitrogen 8 mg/dL (9-16); Calcium 9.0 mg/dL (8.4-10.2); Carbon Dioxide 25 mmol/L (22-29); Chloride 107 mmol/L (96-108); Creatinine Clr Calc Pharmacy 145.3; Estimated Glomerular Filt Rate > 60; Lipase 29 U/L (8-78); Potassium 4.2 mmol/L (3.3-5.1); Sodium 139 mmol/L (135-145); Total Protein 7.3 g/dL (6.5-8.0)
[2025-04-05] MEDS: Sucralfate Oral Suspension 1 GM/10 ML ORAL.SUSP PO (11:12)
[2025-04-05] MEDS: Magnesium Hydrox/Alum Hydrox 30 ML ORAL.SUSP 15 ML PO (11:12)
[2025-04-05] MEDS: Lidocaine HCl Viscous 2 % 15 ML SOLUTION MUCOUS MEM (11:12)
[2025-04-05 11:55] LABS: IDNOW Serial# 55D5AD1C; Strep A Nucleic Acid Negative (Negative)
[2025-04-05 12:21] VITALS: BP 122/76; PULSE 80; RESP 18; TEMP 36.6; O2SAT 98
== END 2025-04-05 12:25 | disposition home or self-care (01) ==
PROVIDERS: Physician Assistant; Emergency Provider Emergency Medicine; PCP Internal Medicine
DX: R07.89 Other chest pain (principal); K21.00 Gastro-esophageal reflux disease with esophagitis, without bleeding; Z79.899 Other long term (current) drug therapy
CPT/HCPCS: 36415; 80048; 80076; 83690; 84443; 84484; 84702; 85025; 87651; 93005; 99283; 99285

== ENCOUNTER → 2025-04-05 09:39 | Outpatient (BNV) | payer OTHER, SELFPAY | PROVIDERS: Emergency Provider Emergency Medicine; PCP Internal Medicine; Visit Provider Internal Medicine Cardiovascular Disease | DX: R07.9 Chest pain, unspecified (principal) | CPT/HCPCS: 93010 ==